=== PATIENT | female | born 1970 | race Hispanic/Latino ===

== ENCOUNTER → 2018-07-25 | Day surgery (SDC) | payer BC ==
[2018-07-09 11:14] VITALS: BMI 29.0
[~2018-07-25] MED LIST: Bupivacaine 0.5% 50 ML IJ ONE; Bupivacaine 0.5% Inj(30mL) IJ ONE; CeFAZolin 1 gm in NS 100ml IVPB ONE; HYDROmorphone 0.5 mg/0.5 ml ISec IVP PRN; Lactated Ringer's 1,000 ML IV SCH; Lidocaine 1% Inj (20ml) ONE; Lidocaine 1% w Epi 1:100,000 Inj ONE; Lidocaine 1%/Epinephrine 1:100000 30 ml vial IJ ONE; Liquid Adhesive TOP ONE; Midazolam 2 MG/2 ML VIAL ONE; Oxycodone/Acetaminophen 5/325 mg Tab PO ONE; Phenylephrine 10 mg/ml Inj ONE; Propofol 10 mg/ml Inj (20 ML) ONE; Sevoflurane - Inhalation Anesthetic Liq (250 ml) ONE; ePHEDrine 50 mg/ml Inj ONE
[2018-07-25 08:24] VITALS: RESP 18
[2018-07-25 12:16] VITALS: TEMP 98; O2SAT 98
[2018-07-25 12:53] VITALS: BP 113/43; PULSE 80
--- NOTE | 2018-07-25 13:14 | PCM.SURG1 ---
Surgeon's Initial Post Op Note - Surgeon's Notes Surgeon: Dr. Acharya Wall Insulation Sprayer: Dr. Redmond PGY3, PGY2 Type of Anesthesia: General LMA Pre-Operative Diagnosis: Left axillary Mass Operative Findings: mass extending approximately 8cm in size. Fascial planes intially difficult to differentiate. for details see op note Post-Operative Diagnosis: left axillary mass Operation Performed: Left axillary mass excision Specimen/Specimens Removed: Left axillary mass Estimated Blood Loss: EBL {In ML}: 10 Drains Used: Isaias (#19 isaias in the axillary bed) Post-Op Condition: Good Date of Surgery/Procedure: 07/25/18 Time of Surgery/Procedure: 09:30 (Dictation #: [id number])
--- NOTE | 2018-07-25 13:14 | PCM.SURG1 ---
Surgeon's Initial Post Op Note - Surgeon's Notes Surgeon: Dr. Acharya Senior Applications Architect: Dr. Redmond PGY3, Dr. Ríos PGY2 Pre-Operative Diagnosis: left axillary mass Operative Findings: axillary lipoma] Post-Operative Diagnosis: same Operation Performed: excision of left axillary mass Specimen/Specimens Removed: left axillary lipoma Estimated Blood Loss: EBL {In ML}: 10 Blood Products Given: N/A Drains Used: Shakeel Post-Op Condition: Good Date of Surgery/Procedure: 07/25/18 Time of Surgery/Procedure: 09:30
--- NOTE | 2018-07-26 00:04 | OP ---
PROCEDURE DATE: 07/25/2018 TIME OF PROCEDURE: 9:30 a.m. SURGEON: Keshawn Acharya MD ASSISTANTS: Buddy Redmond DO and Bobby Ríos DO PREOPERATIVE DIAGNOSIS: Left axillary mass. POSTOPERATIVE DIAGNOSIS: Left axillary mass. PROCEDURE PERFORMED: Left axillary mass excision. ANESTHESIA: LMA. SPECIMEN: Left axillary mass. ESTIMATED BLOOD LOSS: 10 mL. INDICATIONS: This is a 48-year-old female found to have left axillary mass, continued to get bigger over time, was refractory to medical management. The patient continued to have pain and agreed for surgical intervention. Consent was obtained. The patient was discussed the risks and benefits for this procedure. DESCRIPTION OF PROCEDURE: The patient was brought into the operating room in the supine position. The location was identified and marked. The patient was prepped and draped in the usual sterile fashion. A #15 scalpel blade was used to make an incision at the inferior portion of the mass. Electrocautery was used to get down to the fascial plane of the mass. Sharp dissection was utilized with the Metzenbaum scissors around the mass. Proper care was noted to maintain no injury to the skin and nerve structures. Upon showing up the mass, proper care was taken and there has been no injury to the skin, nerves or local blood vessels. Bovie electrocautery was utilized at the distal small structures to maintain appropriate hemostasis. Identification of the axillary anatomy was made, and care was made to avoid any injuries to nerves, vessels or musculature. The mass was removed which seemed to be like in its gross entirety. Ray-vj was placed inside the axilla to ensure that hemostasis was appropriately achieved. Ray-vj was removed and noted the area to be appropriately dry. Approximation of deep dermal, a #3-0 Vicryl suture was used. A #19-Shakeel was used and placed in the axillary bed. The deep dermal was closed with a 3-0 Vicryl and was followed by 4-0 Monocryl in a subcuticular fashion. Steri-Strips were applied. Sterile dressing was applied afterwards. Noted to be 5 mL of serosanguineous fluid inside the Shakeel drain after the case. The patient was then woken up from the anesthesia. The patient tolerated the procedure well and was taken to the postanesthesia care unit in stable condition. All counts were correct at the end of the case. The patient will be discharged home and said to follow up in one week postoperatively. Bobby Ríos DO Keshawn Acharya MD
== END | disposition home or self-care (01) ==
LOC: SDS 06:02
PROVIDERS: ATTEND Surgery
DX: D17.39 Benign lipomatous neoplasm of skin and subcutaneous tissue of other sites (principal)
CPT/HCPCS: 11402; 84703; 88307; J0690; J1100; J1170; J2001; J2250; J2370; J2405; J2704; J2765; J3010; J7120